=== PATIENT | female | born 1985 | race African-American/Black ===

== ENCOUNTER 2020-12-21 11:09 | Emergency (ER) | payer SELFPAY ==
[~2020-12-21] VITALS: Ht 165.1 cm; Wt 81.6 kg
[2020-12-21 11:52] VITALS: BP 117/73
[2020-12-21 13:44] LABS: Urine Bacteria NONE SEEN /hpf (None Seen); Urine Blood Negative /uL (Negative); Urine Mucus FEW (None Seen); Urine Specific Gravity 1.028 (1.001-1.035); Urine WBC 18 /hpf (0 - 5)
[2020-12-21 13:56] LABS: Basophils # (auto) 0 10 ^3/uL (0-0.2); Eosinophils # (auto) 0.1 10 ^3/uL (0-0.8)
[2020-12-21 13:58] LABS: Basophils % (auto) 0.3 % (0.0-2.0); Eosinophils % (auto) 1.3 % (0.0-7.0); Hematocrit 35.3 % (36.0-46.0); Hemoglobin 11.5 g/dL (12.2-16.2); Lymphocytes % (auto) 31.2 % (10.0-50.0); Mean Corpuscular Hemoglobin 25.9 pg (28.0-32.0); Mean Corpuscular Hgb Conc. 32.4 g/dL (32.0-36.0); Monocytes # (auto) 0.8 10 ^3/uL (0-1.3); Monocytes % (auto) 7.9 % (0.0-12.0); Neutrophils # (auto) 5.7 10 ^3/uL (1.6-8.6); Neutrophils % (auto) 59.3 % (37.0-80.0); Red Blood Cells 4.42 10^6/uL (4.0-5.20); Red Cell Distribution Width 17.5 % (11.8-14.3); White Blood Cell 9.6 10^3/uL (4.4-10.8)
[2020-12-21 14:10] LABS: Albumin 3.7 g/dL (3.4-5.0); Calcium 8.8 mg/dL (8.5-10.1); Potassium 3.5 mmol/L (3.5-5.1)
[2020-12-21 14:11] LABS: Barbiturate Scree,Urine NEGATIVE (NEGATIVE); Benzodiazephine Screen, Urine NEGATIVE (NEGATIVE); Cannabinoid Screen, Urine POSITIVE (NEGATIVE); Cocaine Screen, Urine NEGATIVE (NEGATIVE); Opiate Scree,Urine NEGATIVE (NEGATIVE); Phencyclidine Screen, Urine NEGATIVE (NEGATIVE)
[2020-12-21 14:13] LABS: BUN/Creatinine Ratio 15.5
[2020-12-21 14:15] LABS: Bilirubin, Total 0.5 mg/dL (0.2-1.0)
[2020-12-21 14:18] LABS: Amphetamine Screen, Urine NEGATIVE (NEGATIVE)
== END 2020-12-21 14:25 | disposition left against medical advice (07) ==
LOC: ER 11:09
DX: R10.13 Epigastric pain (principal); R11.0 Nausea; Z53.21 Procedure and treatment not carried out due to patient leaving prior to being seen by health care provider
CPT/HCPCS: 36415; 76705; 80053; 80307; 81001; 83690; 85025

== ENCOUNTER 2021-07-28 10:06 | Emergency (ER) | payer SELFPAY ==
[~2021-07-28] VITALS: Ht 165.1 cm; Wt 68.0 kg
[2021-07-28 10:08] VITALS: BP 135/82
[2021-07-28] MEDS ORDERED: LIDO2SOL23 MT (10:36)
[2021-07-28] MEDS ORDERED: AZIT250T8 PO (10:36)
[2021-07-28] MEDS ORDERED: PROM1SOL4 PO (10:36)
== END 2021-07-28 10:43 | disposition home or self-care (01) ==
LOC: ER 10:06
DX: J02.9 Acute pharyngitis, unspecified (principal); J20.9 Acute bronchitis, unspecified